=== PATIENT | male | born 1995 | race Caucasian/White ===

== ENCOUNTER 2020-02-16 01:51 | Emergency (ER) | payer OTHER ==
[~2020-02-16] VITALS: Ht 172.7 cm; Wt 68.0 kg
[2020-02-16 01:57] VITALS: Ht 172.7 cm; Wt 68.0 kg
[2020-02-16 02:02] VITALS: BP 146/90
== END 2020-02-16 02:02 | disposition other institution (70) ==
LOC: ED 01:51
DX: Z02.89 Encounter for other administrative examinations (principal)